=== PATIENT | female | born 1945 | race Caucasian/White ===

== ENCOUNTER 2019-07-21 10:06 | Day surgery (SDC) | payer OTHER ==
[2019-07-18 11:46] VITALS: BMI 23.5
[2019-07-21] MEDS ORDERED: DEXAMETHASONE SOD PHOSPHATE/PF 10 MG/ML SDV ONE (13:51)
[2019-07-21] MEDS ORDERED: ROPIVACAINE HCL 0.5% 30ML VIAL ONE (13:51)
[2019-07-21] MEDS ORDERED: MIDAZOLAM HCL 2 MG/2 ML SINGLE DOSE VIAL ONE (13:51)
[2019-07-21] MEDS ORDERED: EPHEDRINE SULFATE/0.9% NACL/PF 50 MG/10 ML SYRINGE NR ONE (15:26)
[2019-07-21] MEDS ORDERED: ceFAZolin SODIUM 1 GM VIAL ONE (15:27)
[2019-07-21] MEDS ORDERED: ONDANSETRON 4 MG/2 ML VIAL ONE (15:41)
[2019-07-21] MEDS ORDERED: DEXAMETHASONE SOD PHOSPHATE 4 MG/1 ML VIAL ONE (15:41)
[2019-07-21] MEDS ORDERED: TRANEXAMIC ACID 1000 MG/10 ML VIAL ONE (15:55)
[2019-07-21] MEDS ORDERED: BENZOIN/ALOE VERA/STORAX/TOLU 58 ML BOTTLE ONE (16:31)
--- NOTE | 2019-07-21 16:58 | PN ---
Progress Note (short form) - Note Progress Note: 73F s/p RIGHT shoulder open Afshin procedure, Neer Decompression, & primary rotator cuff repair POD #0. -Pain control: Vicodin, Duexis ordered to pharmacy. -Incentive spirometry. -No chemical DVT PPx. -RUE sling. -No RIGHT shoulder ROM. -Daily RIGHT elbow, wrist & hand ROM. -Keep dressing clean & dry. -f/u in [facility] [place] [facility] in 7-10 days; call for appointment; . Juan Kirkland MD (Orthopaedic Surgery).
[2019-07-21] MEDS ORDERED: LACTATED RINGERS SOLUTION 1,000 ML IV SCH (17:00)
[2019-07-21] MEDS ORDERED: ONDANSETRON 4 MG/2 ML VIAL IVPUSH PRN (17:00)
[2019-07-21] MEDS ORDERED: oxyCODONE HCL 5 MG TABLET PO PRN (17:00)
--- NOTE | 2019-07-21 17:02 | OP ---
Operative Note - Note: Operative Date: 07/21/19 Pre-Operative Diagnosis: Right shoulder impingement syndrome with rotator cuff derangement Operation: Right shoulder open: 1. Afshin procedure. 2. Neer decompression. 3. Primary rotator cuff repair Findings: Full thickness right rotator cuff tear Post-Operative Diagnosis: Same as Pre-op Surgeon: Juan Kirkland Inter Com Installer: Mendel Kirkland Anesthesiologist/RIP SAWYER: Esha Treviño Anesthesia: General Specimens Removed: Excision arthroplasty right shoulder Estimated Blood Loss (mls): 20 Fluid Volume Replaced (mls): 1,100 (Crystalloid) Operative Report Dictated: Yes
[2019-07-21 18:21] VITALS: BP 111/52; PULSE 68; TEMP 97.2
--- NOTE | 2019-07-22 07:05 | OP ---
DATE OF OPERATION: DATE OF DICTATION: 07/21/2019 SURGEON: Juan Kirkland MD [employer] OPERATOR: Mendel Kirkland MD PREOPERATIVE DIAGNOSIS: Impingement syndrome, right shoulder, with rotator cuff repair. POSTOPERATIVE DIAGNOSIS: Impingement syndrome, right shoulder, with rotator cuff repair. OPERATION PERFORMED: 1. Afshin excision arthroplasty, clavicle. (09702) 2. Neer decompression: Acromioplasty; Transsection, coracoacromial ligament. ( [id number]) 4. Repair of full rotator cuff tear. (96884) ANESTHESIA: General with scalene block. ANTIBIOTICS GIVEN: Ancef 2 g, 1 g of vancomycin. TXA given. DESCRIPTION OF PROCEDURE: Patient in the beach-chair position, that is at 45 degrees of elevation, the right upper extremity was prepped and draped in the routine manner with Betadine scrub solution, wiped off with alcohol, DuraPrep applied, a free drape applied exposing the entire shoulder joint. The axilla was sealed. A timeout was called. The imaging was available for intraoperative evaluation. The incision was made from the tip of the coracoid to the tip of the acromion in the lines of Christopher. The dissection was taken through the skin and subcutaneous tissues to the deltoid. The clavicle was palpated and found to be mobile within the confines of the acromioclavicular joint indicative of previous disruption of this joint, i.e., a grade 2 subluxation was readily noted. A Hohmann retractor was placed behind the clavicle and a Hohmann retractor was placed anteriorly to separate the deep tissues and a small oscillating saw was utilized to excise 1 cm of the lateral end of the clavicle in a beveled cut fashion. Once this had been performed the deltoid was split longitudinally for about 2 cm and this gave clear access to the coracoacromial ligament. The coracoacromial ligament was transected using a 15 blade and the rest was continued with a Metzenbaum scissors, freeing the entire subacromial space from the ligament and providing complete decompression of the space. A sharp beak of acromion was noted and a blunt Hohmann was placed under the surface of the acromion leaving the humeral head down. An excision of the beaked aspect of the acromion performed using a combination of rongeurs as well as an oscillating saw. The entire subacromial space was free and easy digital palpation of the subacromial space was performed. The tissues were thoroughly lavaged. Direct inspection of the rotator cuff within all directions of the arm revealed the presence of a large tear which went from front to back. There was a cuff of muscle. The edges of the tear were excised using a 15 blade and using 4 No. 1 Vicryl sutures the entire repair was repaired with a watertight seal being achieved. The wound was then thoroughly lavaged. Hemostasis was achieved. The muscle that is of the deltoid as well as the remains of the AC joint were reattached to each other to bring about a very effective closure of the excision arthroplasty site and the associated deltoid itself. Other closure was subcutaneous tissue 1 Vicryl, skin 3-0 Monocryl, Steri-Strips, sling provided. Overall, the operation went extremely well. No complications. MD ZARINA Rain/[id number] [place]
== END 2019-07-21 18:15 | disposition home or self-care (01) ==
LOC: FASU 10:06
PROVIDERS: ATTEND Orthopaedic Surgery Orthopaedic Surgery of the Spine
PROC: 0MN10ZZ Release Right Shoulder Bursa and Ligament, Open Approach (ICD-10-PCS; 2019-07-21)
PROC: 0LQ10ZZ Repair Right Shoulder Tendon, Open Approach (ICD-10-PCS; 2019-07-21)
PROC: 0PB90ZZ Excision of Right Clavicle, Open Approach (ICD-10-PCS; principal; 2019-07-21 15:50)
DX: M75.41 Impingement syndrome of right shoulder (principal); M75.121 Complete rotator cuff tear or rupture of right shoulder, not specified as traumatic
CPT/HCPCS: 82962; 94760